=== PATIENT | female | born 2000 | race Two or more races ===

== ENCOUNTER 2022-11-04 04:07 | Emergency (ER) | payer BC ==
[~2022-11-04] VITALS: Ht 170.2 cm; Wt 69.4 kg
[2022-11-04] MEDS ORDERED: DOLOGESIC-DF 51 EACH PO (08:29)
[2022-11-04] MEDS ORDERED: ZYNCOF 20-400120 ML PO (08:29)
[2022-11-04] MEDS ORDERED: PHENAGIL TABLE1 EACH PO (08:29)
== END 2022-11-04 08:38 | disposition home or self-care (01) ==
LOC: ER 04:07
DX: J06.9 Acute upper respiratory infection, unspecified (principal); Z20.822 Contact with and (suspected) exposure to COVID-19